=== PATIENT | male | born 1945 | race Hispanic/Latino ===

== ENCOUNTER → 2017-11-12 | Outpatient (CLI) | payer OTHER ==
[~2017-11-12] MED LIST: IOPAMIDOL 370 MG/ML 200 ML INFUS..BTL INJ ONE; SODIUM CHLORIDE 0.9% 50ML 50 ML ONE
[2017-11-12 08:42] LABS: BLOOD UREA NITROGEN 15 mg/dL (7-26); BUN/CREATININE RATIO 14 (6-25); CREATININE, SERUM 1.04 mg/dL (0.72-1.25); EST GLOMERULAR FILTRATION RATE > 60 ML/MIN (60-)
--- NOTE | 2017-11-12 09:05 | Diagnostic Imaging Report ---
PROCEDURE: X-RAY CHEST, TWO VIEWS COMPARISON: None. INDICATIONS: MALIGNANT NEOPLASM OF PROSTATE FINDINGS: LUNGS: No consolidations or edema. PLEURA: No effusions or pneumothorax. HEART \T\ MEDIASTINUM: Tortuous thoracic aorta with otherwise unremarkable cardiomediastinal contour. BONES \T\ SOFT TISSUES: No acute findings. CONCLUSION: No acute thoracic abnormality. Dictated by: Roland Tatum M.D. on 11/12/2017 at 9:05 Electronically approved by: Roland Tatum M.D. on 11/12/2017 at 9:05
--- NOTE | 2017-11-12 10:25 | Diagnostic Imaging Report ---
PROCEDURE: CT ABDOMEN AND PELVIS WITH CONTRAST TECHNIQUE: The abdomen and pelvis were scanned utilizing a multidetector helical scanner from the diaphragm to the lesser trochanter after the IV administration of 100 cc of Isovue-370 and the oral administration of water. Coronal and sagittal multiplanar reformations were obtained. COMPARISON: None. INDICATIONS: MALIGNANT NEOPLASM OF PROSTATE FINDINGS: LOWER THORAX: Unremarkable. Calcified granuloma in the left lung base. No suspicious nodules. HEPATOBILIARY: 1.1 cm hyperattenuating lesion in hepatic segment 8 at the dome is nonspecific though likely represent a flash filling hemangioma or vascular shunt. No additional focal hepatic lesion. No intrahepatic biliary ductal dilatation. The gallbladder is unremarkable. SPLEEN: No splenomegaly or focal splenic lesion. PANCREAS: No focal masses or ductal dilatation. ADRENALS: No adrenal nodules. KIDNEYS/URETERS: Exophytic simple cyst projecting from the upper pole of the left kidney (average internal attenuation 18 Hounsfield units). No additional focal renal lesion. No hydronephrosis. No calculi. PELVIC ORGANS/BLADDER: The urinary bladder is incompletely distended but otherwise unremarkable. The prostate is enlarged. It measures 5.6 cm in transverse dimension. PERITONEUM / RETROPERITONEUM: No ascites. No pneumoperitoneum. LYMPH NODES: No pelvic sidewall, retroperitoneal, or mesenteric lymphadenopathy. VESSELS: There is atherosclerotic calcification of the abdominal aorta, major branch vessels, and iliac arterial systems, without aneurysmal dilatation or significant stenosis. The portal vein, splenic vein, and central superior mesenteric vein are patent. GI TRACT: The large bowel shows no evidence of distention or wall thickening. Gas and fecal material are noted throughout. The appendix is normal. The stomach is collapsed with prominent rugal folds . 2.9 cm diverticulum arising from the fourth portion of the duodenum. No small bowel dilatation to suggest obstruction. BONES AND SOFT TISSUES: No osseous destructive lesions. Multilevel degenerative disc changes and facet arthropathy of the lower lumbar spine. Small fat containing left inguinal hernia. Otherwise no focal soft tissue abnormalities. IMPRESSION: 1.1 cm hyperattenuating lesion at the dome of the liver most likely represents a vascular shunt or flash filling hemangioma. Though metastatic disease from prostate cancer is felt to be much less likely, further characterization of this lesion with MRI of the abdomen with and without contrast (liver mass protocol) is suggested. Otherwise no CT evidence of intra-abdominal or pelvic metastatic disease. Dictated by: Roland Tatum M.D. on 11/12/2017 at 10:25 Electronically approved by: Roland Tatum M.D. on 11/12/2017 at 10:25
--- NOTE | 2017-11-12 17:46 | Diagnostic Imaging Report ---
Bone Scan, delayed phase INDICATION: 72 M with prostate cancer and right hip/groin pain x 1 year COMPARISON: None available REPORT: Approximately 4 hours following intravenous administration of 27.8 mCi of Tc-99m MDP, delayed total body images in the anterior and posterior projections and selected spot images were obtained. Degenerative changes are noted in the mid cervical spine, lower lumbar spine and bilateral knees. Otherwise, distribution of tracer activity is unremarkable throughout the skeletal system. Specifically, no abnormal accumulation of tracer is seen in the right hip, right pelvis or proximal femur. No abnormal accumulation of tracer is seen in the soft tissues or urinary tract. IMPRESSION: No acute osteoblastic process in the pelvis, right hip or right femur to suggest an etiology of the patent's right hip/groin pain. No scan evidence of metastatic bone disease. Signed by: Dr. Pauline Henderson M.D. on 11/12/2017 5:42 PM
== END ==
LOC: NM 07:43
PROVIDERS: ATTEND Urology
DX: C61 Malignant neoplasm of prostate (principal)
CPT/HCPCS: 36415; 71046; 74177; 78306; 82565; 84520; A9503; Q9967

== ENCOUNTER 2017-11-30 12:00 | Inpatient (IN) | payer OTHER ==
[~2017-11-30] VITALS: Ht 167.6 cm; Wt 83.5 kg
--- OUTSIDE RECORDS SUMMARY | 2017-11-30 12:02 | XMS REPORT ---
[facility] Address Unknown Phone Unavailable Care Team Providers Care Cap Parts Cutter Name Role Phone JANET NARAYANAN Unavailable Unavailable Problems This patient has no known problems. Allergies, Adverse Reactions, Alerts This patient has no known allergies or adverse reactions. Medications This patient has no known medications. Results Test Description Test Time Test Comments Text Results Atomic Results Result Comments CHEST 2 VIEWS [place] [address] Patient Name: KVNG NICK MR #: [id number] : 1945 Age/Sex: 72/M Req #: [id number] Adm Physician: Ordered by: JANET NARAYANAN MD Report #: [id number] Location: [place] Room/Bed: Procedure: [id number] DX/ CHEST 2 VIEWS Exam Date: 11/12/17 Exam Time: 0850 REPORT STATUS: Signed PROCEDURE: X-RAY CHEST, TWO VIEWS COMPARISON: None. INDICATIONS: MALIGNANT NEOPLASM OF PROSTATE FINDINGS: LUNGS: No consolidations or edema. PLEURA: No effusions or pneumothorax. HEART T MEDIASTINUM: Tortuous thoracic aorta with otherwise unremarkable cardiomediastinal contour. BONES T SOFT TISSUES : No acute findings. CONCLUSION: No acute thoracic abnormality. Dictated by: Charlee Wheeler M.D. on 11/12/2017 at 9:05 Electronically approved by: Charlee Wheeler M.D. on 11/12/2017 at 9:05 Dictated By: CHARLEE WHEELER MD 4 Transcribed By: MATILDA on 11/12/17904 COPY TO: JANET NARAYANAN MD CT ABDOMEN/PELVIS W [place] [address] Patient Name: KVNG NICK MR #: [id number] : 1945 Age/Sex: 72/M Req #: [id number] Adm Physician: Ordered by: JANET NARAYANAN MD Report #: [id number] Location: [place] Room/Bed: Procedure: [id number] CT/CT ABDOMEN/PELVIS W Exam Date: 11/12/17 Exam Time: 936 REPORT STATUS: Signed PROCEDURE: CT ABDOMEN AND PELVIS WITH CONTRAST TECHNIQUE: The abdomen and pelvis were scanned utilizing a multidetector helical scanner from the diaphragm to the lesser trochanter after the IV administration of 100 cc of Isovue-370 and the oral administration of water. Coronal and sagittal multiplanar reformations were obtained. COMPARISON: None. INDICATIONS: MALIGNANT NEOPLASM OF PROSTATE FINDINGS: LOWER THORAX: Unremarkable. Calcified granuloma in the left lung base. No suspicious nodules. HEPATOBILIARY: 1.1 cm hyperattenuating lesion in hepatic segment 8 at the dome is nonspecific though likely represent a flash filling hemangioma or vascular shunt. No additional focal hepatic lesion. No intrahepatic biliary ductal dilatation. The gallbladder is unremarkable. SPLEEN: No splenomegaly or focal splenic lesion. PANCREAS: No focal masses or ductal dilatation. ADRENALS: No adrenal nodules. KIDNEYS/URETERS: Exophytic simple cyst projecting from the upper pole of the left kidney (average internal attenuation 18 Hounsfield units). No additional focal renal lesion. No hydronephrosis. No calculi. PELVIC ORGANS/BLADDER: The urinary bladder is incompletely distended but otherwise unremarkable. The prostate is enlarged. It measures 5.6 cm in transverse dimension. PERITONEUM / RETROPERITONEUM: No ascites. No pneumoperitoneum. LYMPH NODES: No pelvic sidewall, retroperitoneal, or mesenteric lymphadenopathy. VESSELS: There is atherosclerotic calcification of the abdominal aorta, major branch vessels , and iliac arterial systems, without aneurysmal dilatation or significant stenosis. The portal vein, splenic vein, and central superior mesenteric vein are patent. GI TRACT: The large bowel shows no evidence of distention or wall thickening. Gas and fecal material are noted throughout. The appendix is normal. The stomach is collapsed with prominent rugal folds . 2.9 cm diverticulum arising from the fourth portion of the duodenum. No small bowel dilatation to suggest obstruction. BONES AND SOFT TISSUES: No osseous destructive lesions. Multilevel degenerative disc changes and facet arthropathy of the lower lumbar spine. Small fat containing left inguinal hernia. Otherwise no focal soft tissue abnormalities. IMPRESSION: 1.1 cm hyperattenuating lesion at the dome of the liver most likely represents a vascular shunt or flash filling hemangioma. Though metastatic disease from prostate cancer is felt to be much less likely, further characterization of this lesion with MRI of the abdomen with and without contrast (liver mass protocol) is suggested. Otherwise no CT evidence of intra-abdominal or pelvic metastatic disease. Dictated by: Charlee Wheeler M.D. on 11/12/2017 at 10:25 Electronically approved by: Charlee Wheeler M.D. on 11/12/2017 at 10:25 Dictated By : CHARLEE WHEELER MD 1025 Transcribed By: MATILDA on 11/12/17 1025 COPY TO: JANET NARAYANAN MD BONE and/or JOINT WHOLE BODY [place] [address] Patient Name: KVNG NICK MR #: [id number] : 1945 Age/Sex: 72/M Req #: [id number] Adm Physician: Ordered by: JANET NARAYANAN MD Report #: [id number] Location: [place] Room/Bed: Procedure: [id number] NM/BONE and/or JOINT WHOLE BODY Exam Date: 11/12/17 Exam Time: 0830 REPORT STATUS: Signed Bone Scan, delayed phase INDICATION: 72 M with prostate cancer and right hip/groin pain x 1 year COMPARISON: None available REPORT: Approximately 4 hours following intravenous administration of 27.8 mCi of Tc-99m MDP, delayed total body images in the anterior and posterior projections and selected spot images were obtained. Degenerative changes are noted in the mid cervical spine, lower lumbar spine and bilateral knees. Otherwise, distribution of tracer activity is unremarkable throughout the skeletal system. Specifically, no abnormal accumulation of tracer is seen in the right hip, right pelvis or proximal femur. No abnormal accumulation of tracer is seen in the soft tissues or urinary tract. IMPRESSION: No acute osteoblastic process in the pelvis, right hip or right femur to suggest an etiology of the patent's right hip/groin pain. No scan evidence of metastatic bone disease. Signed by: Dr. Zandra Henderson M.D. on 11/12/2017 5: 42 PM Dictated By: ZANDRA HENDERSON MD 41 Transcribed By: MONSE on 11/12/171741 COPY TO: JANET NARAYANAN MD
[2017-11-30 13:02] LABS: BASOPHILS % 0.4 % (0.0-1.0); EOSINOPHILS # (AUTO) 0.1 (0.0-0.4); HEMATOCRIT 42.6 % (38.2-49.6); HEMOGLOBIN 14.7 g/dL (14.0-18.0); LYMPHOCYTES # (AUTO) 1.6 (1.0-3.2); LYMPHOCYTES % 19.5 % (18.0-39.1); MEAN CORPUSCULAR HEMOGLOBIN 32.7 pg (28-32); MEAN CORPUSCULAR HGB CONC 34.5 g/dL (31-35); MEAN CORPUSCULAR VOLUME 94.7 fL (81-99); MONOCYTES # (AUTO) 0.6 (0.2-0.8); MONOCYTES % 7.7 % (4.4-11.3); NEUTROPHILS # (AUTO) 5.7 (2.1-6.9); NEUTROPHILS % 71.3 % (38.7-80.0); PLATELET COUNT 288 x10e3/uL (140-360)
[2017-11-30] MEDS ORDERED: GENTAMICIN 80MG/NS 100 ML 200 ML IV ONE (13:03)
[2017-11-30] MEDS ORDERED: CLINDAMYCIN PHOS 900MG/ D5W 50 50 ML IV ONE (13:03)
[2017-11-30] MEDS ORDERED: PIPER-TAZ 3.375 GM 100 ML ONE (13:03)
[2017-11-30 13:23] LABS: ANION GAP 13.1 mmol/L (8-16); BLOOD UREA NITROGEN 16 mg/dL (7-26); BUN/CREATININE RATIO 17 (6-25); CALCIUM 9.9 mg/dL (8.4-10.2); CARBON DIOXIDE 26 mmol/L (22-29); CHLORIDE 107 mmol/L (98-107); CREATININE, SERUM 0.95 mg/dL (0.72-1.25); EST GLOMERULAR FILTRATION RATE > 60 ML/MIN (60-); GLUCOSE 89 mg/dL (74-118); POTASSIUM 4.1 mmol/L (3.5-5.1); SODIUM 142 mmol/L (136-145)
--- NOTE | 2017-11-30 13:27 | Diagnostic Imaging Report ---
PROCEDURE: Frontal and lateral views of the chest. COMPARISON: 11/12/17 INDICATIONS: PREOPERATIVE CHEST XRAY FOR PROSTATE SURGERY FINDINGS: Lines/tubes: None. Lungs: The lungs are well inflated and clear. There is no evidence of pneumonia or pulmonary edema. Pleura: There is no pleural effusion or pneumothorax. Heart and mediastinum: The heart and the mediastinum are normal. Bones: No acute bony abnormality. IMPRESSION: 1. No acute cardiopulmonary disease. Dictated by: Wilmer Kinsey M.D. on 11/30/2017 at 13:29 Electronically approved by: Wilmer Kinsey M.D. on 11/30/2017 at 13:29
[2017-11-30] MEDS ORDERED: METHYLENE BLUE 1% INJ 10 ML VIAL INJ ONE (16:12)
[2017-11-30] MEDS ORDERED: GLYCOPYRROLATE INJ 1MG/ 5 ML SYR ONE (16:58)
[2017-11-30] MEDS ORDERED: DEXAMETHASONE SOD PHOS INJ 4 MG/ML VIAL ONE (16:58)
[2017-11-30] MEDS ORDERED: ROCURONIUM BROMIDE 10 MG/ML 5ML VIAL ONE (16:58)
[2017-11-30] MEDS ORDERED: ONDANSETRON HCL INJ 2 MG/ML VIAL ONE (16:58)
[2017-11-30] MEDS ORDERED: PROPOFOL IV EMULSION 10 MG/ML 20 ML VIAL ONE (16:58)
[2017-11-30] MEDS ORDERED: NEOSTIGMINE 5 MG/5ML SYR ONE (16:58)
[2017-11-30] MEDS ORDERED: SEVOFLURANE INHAL SOLN 250 ML PEN BTL ONE (16:58)
[2017-11-30] MEDS ORDERED: LIDOCAINE HCL 2% LOCAL INJ 5 ML SDV VIAL INJ ONE (16:58)
[2017-11-30] MEDS ORDERED: HYDRALAZINE HCL 20 MG/ML VIAL ONE (17:19)
[2017-11-30] MEDS ORDERED: ACETAMINOPHEN 1000 MG/100 ML IV PRN (18:00)
[2017-11-30] MEDS ORDERED: ONDANSETRON HCL INJ 2 MG/ML VIAL IV PRN (18:00)
[2017-11-30] MEDS ORDERED: MORPHINE SULFATE 1 MG/ML 30ML PCA IV PRN (18:00)
[2017-11-30] MEDS ORDERED: DIPHENHYDRAMINE HCL INJ 50 MG/ML VIAL IM PRN (18:00)
[2017-11-30] MEDS ORDERED: DIPHENHYDRAMINE HCL 25 MG CAP PO PRN (18:00)
[2017-11-30] MEDS ORDERED: NALOXONE HCL INJ 0.4 MG/ML AMP IV PRN (18:00)
[2017-11-30] MEDS ORDERED: MIDAZOLAM HCL 2 MG/2 ML VIAL ONE (19:38)
[2017-11-30] MEDS ORDERED: FENTANYL CITRATE/PF 100MCG/2 ML INJ ONE (19:38)
[2017-11-30] MEDS ORDERED: MORPHINE SULFATE INJ 10 MG/ML ONE (19:38)
[2017-11-30] MEDS: D5.45%NS/KCL 20MEQ 1,000 ML IV SCH (19:46)
[2017-11-30 20:00] VITALS: BP 135/63
[2017-11-30 21:20] VITALS: BP 135/63
[2017-11-30] MEDS: PIPER-TAZ 3.375 GM 100 ML IV SCH (21:20)
[2017-11-30] MEDS: CLINDAMYCIN 300MG 50 ML IV SCH ×2 (21:30→22:30)
[2017-12-01] VITALS (7 sets, daily range): BP systolic 113–136; BP diastolic 56–60
[2017-12-01] MEDS: D5.45%NS/KCL 20MEQ 1,000 ML IV SCH ×2 (01:51→06:18)
[2017-12-01] MEDS: PIPER-TAZ 3.375 GM 100 ML IV SCH ×3 (05:17→20:54)
[2017-12-01] MEDS: CLINDAMYCIN 300MG 50 ML IV SCH (06:18)
[2017-12-01 07:22] LABS: BASOPHILS % 0.1 % (0.0-1.0); HEMATOCRIT 34.6 % (38.2-49.6); HEMOGLOBIN 11.9 g/dL (14.0-18.0); LYMPHOCYTES % 9.2 % (18.0-39.1); MEAN CORPUSCULAR HEMOGLOBIN 32.8 pg (28-32); MEAN CORPUSCULAR HGB CONC 34.4 g/dL (31-35); MEAN CORPUSCULAR VOLUME 95.3 fL (81-99); MONOCYTES # (AUTO) 0.9 (0.2-0.8); MONOCYTES % 8.3 % (4.4-11.3); NEUTROPHILS # (AUTO) 8.7 (2.1-6.9); NEUTROPHILS % 82.1 % (38.7-80.0); PLATELET COUNT 245 x10e3/uL (140-360); RED BLOOD COUNT 3.63 x10e6/uL (4.3-5.7)
[2017-12-01 07:43] LABS: ANION GAP 11.4 mmol/L (8-16); BLOOD UREA NITROGEN 13 mg/dL (7-26); BUN/CREATININE RATIO 13 (6-25); CALCIUM 8.7 mg/dL (8.4-10.2); CARBON DIOXIDE 26 mmol/L (22-29); CHLORIDE 107 mmol/L (98-107); EST GLOMERULAR FILTRATION RATE > 60 ML/MIN (60-); GLUCOSE 122 mg/dL (74-118); POTASSIUM 4.4 mmol/L (3.5-5.1); SODIUM 140 mmol/L (136-145)
[2017-12-01] MEDS: DOCUSATE SODIUM 100 MG CAP PO SCH ×2 (08:24→16:31)
[2017-12-01] MEDS ORDERED: HYDROMORPHONE 1MG/1ML INJ IV PRN (09:00)
[2017-12-01] MEDS ORDERED: HYDROCODONE/APAP 10MG-325MG TAB PO PRN (09:00)
--- NOTE | 2017-12-01 10:06 | History and Physical ---
COMMERCIAL ACCOUNTANT: Dr. Booker Arvizu CHIEF COMPLAINT: Status post radical prostatectomy secondary to prostate cancer. HISTORY: Patient is 72-year-old male who is now status post radical prostatectomy secondary to prostate cancer. The patient is stable. No chest pain. No shortness of breath. No abdominal pain. PAST MEDICAL HISTORY: Prostate cancer. PAST SURGICAL HISTORY: Status post radical prostatectomy. SOCIAL HISTORY: Patient does not smoke or use alcohol. No recreational drug use. ALLERGIES: NO KNOWN ALLERGIES. HOME MEDICATIONS: Not yet available. REVIEW OF SYSTEMS: Status post prostate surgery. PHYSICAL EXAMINATION: VITAL SIGNS: Temperature is 98, blood pressure 113/56, pulse rate is 58, respiration 18. GENERAL: The patient is not in acute distress. He is awake. HEENT: Normocephalic, atraumatic. Sclerae anicteric. NECK: Supple grossly. PULMONARY: Diminished breath sounds without any wheezing or rales. CARDIOVASCULAR: S1, S2. Regular rate and rhythm. ABDOMEN: Soft. Positive bowel sounds. Status post radical prostatectomy. EXTREMITIES: No cyanosis or edema. NEURO: There is no gross focal deficit. LABORATORY: Sodium is 140, potassium is 4.4, chloride 107, bicarb 26, BUN 13, creatinine 1.2, glucose 122. WBC 10.5, hemoglobin 11.9, hematocrit 34.6, platelets is 245,000. IMPRESSION: 1. Status post radical prostatectomy. 2. Low-grade fever. PLAN: Continue postoperative care. Pain control. IV fluids adjustment. Will monitor the patient closely. Job#: [id number]
[2017-12-01] MEDS ORDERED: ONDANSETRON HCL 4 MG ORAL DISINTEGRATING TAB SL PRN (13:45)
[2017-12-01] MEDS: FAMOTIDINE 20 MG TAB PO SCH (16:31)
[2017-12-02] VITALS: BP 138/56
[2017-12-02 04:00] VITALS: BP 142/65
[2017-12-02] MEDS: PIPER-TAZ 3.375 GM 100 ML IV SCH (06:04)
[2017-12-02 07:04] LABS: BASOPHILS % 0.2 % (0.0-1.0); EOSINOPHILS # (AUTO) 0.1 (0.0-0.4); HEMATOCRIT 34.8 % (38.2-49.6); HEMOGLOBIN 11.8 g/dL (14.0-18.0); LYMPHOCYTES # (AUTO) 1.6 (1.0-3.2); LYMPHOCYTES % 19.5 % (18.0-39.1); MEAN CORPUSCULAR HEMOGLOBIN 33.3 pg (28-32); MEAN CORPUSCULAR HGB CONC 33.9 g/dL (31-35); MEAN CORPUSCULAR VOLUME 98.3 fL (81-99); MONOCYTES # (AUTO) 0.8 (0.2-0.8); MONOCYTES % 9.5 % (4.4-11.3); NEUTROPHILS # (AUTO) 5.8 (2.1-6.9); NEUTROPHILS % 69.4 % (38.7-80.0); PLATELET COUNT 206 x10e3/uL (140-360); RED BLOOD COUNT 3.54 x10e6/uL (4.3-5.7); RED CELL DISTRIBUTION WIDTH 13.2 % (11.7-14.4)
[2017-12-02 07:40] VITALS: BP 142/65
[2017-12-02 07:43] LABS: ANION GAP 10.1 mmol/L (8-16); BLOOD UREA NITROGEN 14 mg/dL (7-26); BUN/CREATININE RATIO 12 (6-25); CALCIUM 9.3 mg/dL (8.4-10.2); CARBON DIOXIDE 29 mmol/L (22-29); CHLORIDE 107 mmol/L (98-107); CREATININE, SERUM 1.15 mg/dL (0.72-1.25); EST GLOMERULAR FILTRATION RATE > 60 ML/MIN (60-); GLUCOSE 93 mg/dL (74-118); POTASSIUM 4.1 mmol/L (3.5-5.1); SODIUM 142 mmol/L (136-145)
[2017-12-02 08:05] VITALS: BP 148/68
[2017-12-02] MEDS: FAMOTIDINE 20 MG TAB PO SCH (08:24)
[2017-12-02] MEDS: DOCUSATE SODIUM 100 MG CAP PO SCH (08:24)
--- NOTE | 2017-12-02 13:03 | Discharge Summary ---
PRIMARY CARE PHYSICIAN: Dr. Bronwyn Diaz. END USER CONSULTANT: Dr. Booker Arvizu. FINAL DIAGNOSES 1. Postoperative care status post radical prostatectomy, the procedure was done by Dr. Booker Arvizu. 2. Status post low-grade fever. 3. Prostate cancer. SUMMARY: Patient is a 72-year-old male admitted to the hospital after surgical intervention done by Dr. Booker Arvizu. The patient is status post radical prostatectomy secondary to prostate cancer. Patient is stable postop. Pain controlled. He is stable at this time. He will be discharged home with a Rogers catheter. Medications given. Resume home medications. Prescription given by Dr. Booker Arvizu including Tylenol No. 3 p.r.n., Colace 1 mg b.i.d. and Levaquin 500 mg daily for 7 days. Patient is stable. He will follow up with Dr. Booker Arvizu as an outpatient. The patient will have postoperative care upon followup with Dr. Arvizu. Patient is stable and discharged home today. Job#: [id number] JESSICA
--- NOTE | 2018-01-27 02:52 | Operative Report ---
DATE OF PROCEDURE: November 30, 2017 PREOPERATIVE DIAGNOSIS: Clinically localized prostate cancer. POSTOPERATIVE DIAGNOSIS: Clinically localized prostate cancer. PROCEDURE PERFORMED: Radical perineal prostatectomy. Procedure complicated by the significant surrounding reaction. ROLL WEIGHER: Cinthya Arvizu MD COMPLICATIONS: None. CLINICAL SUMMARY: Ortiz Moreno is a 72-year-old man who was diagnosed with prostate cancer. He was given literature. He had multiple office visits to discuss the treatment options including radiotherapy, hormone therapy, neoadjuvant combination of those two, radical prostatectomy as well as watchful waiting. Other modalities were also discussed. The patient elected to proceed with radical perineal prostatectomy. He understands the risks of bleeding, infection, injury to adjacent structures, incontinence, impotence, need for additional procedures, incomplete cancer resection. He elected to proceed. OPERATIVE PROCEDURE IN DETAIL: Informed consent was verified. Ortiz Moreno was properly identified, taken to the operating room, placed on the operating table in supine position. Anesthesia was uneventfully begun. The patient was then carefully and gently repositioned very slowly in the exaggerated lithotomy position with all pressure points carefully well padded. His perineum was shaved and his abdomen, genitalia, perineum and buttocks were prepared and draped in usual sterile fashion. A curved Lowsley retractor was atraumatically inserted in the patient's urethra and into the patient's bladder and the wings opened. A curvilinear incision was then made from just medial to each ischial tuberosity and curving around with the apex being in the middle of the perineum. We carried this incision through all layers of the perineum until we exposed the pearly patrick that led to the prostatic apex. Once we exposed the prostatic apex, we utilized a self-retaining retractor. We proceeded with dissecting posteriorly as we dropped the Denonvilliers fascia posteriorly. Care was taken to avoid any injury to the rectum. Once we isolated the apex, we proceeded with taking down lateral pedicles. We then proceeded with taking down bladder neck fibers in order to try to preserve as many of them without impinging on the extirpative nature of excising all cancer and prostatic tissue. Once bladder neck dissection was partially done, we gave our attention to the apex where the urethra was divided just distal to the prostatic apex. This allowed us to remove the curved Lowsley retractor. We placed the straight Lowsley retractor. We then incised the anterior half of the urethra. We then proceeded with the anterior dissection until we reached the bladder neck and then we completed the bladder neck dissection. Attention was then given to the ampullae of the vas. These were ligated and divided and then both seminal vesicles were dissected out, ligated and divided as well. The remaining lateral pedicles of the prostate were then taken down and controlled with Hemoclips and these specimens were removed from the field. Visibly complete excision was performed. Copious irrigation was performed. We then reconstructed the posterior portion of the bladder neck with several interrupted Monocryl sutures. We then proceeded with performing the urethrovesical anastomosis utilizing a total of 13 sutures. The midline posterior one was in a U-stitch fashion. Just before tying the last several sutures, a new Rogers catheter was placed. It was inflated into the patient's bladder. During the bladder neck reconstruction, both ureteral orifices were identified and were left uninjured. Once the entire anastomosis was completed and all sutures tied, copious irrigation was performed. A Whatley drain was then placed through the left corner of the incision and placed in such a way as to drain both lateral pedicle regions. This drain was secured to the skin with a chromic suture. The median raphe and perineal bodies were then approximated with heavy Vicryl suture in an interrupted figure-of-8 fashion. The subcutaneous tissues were approximated with interrupted absorbable suture. The subcutaneous layer and subdermal layer there were then approximated with interrupted Vicryl suture. The skin was approximated with chromic suture in interrupted vertical mattress fashion. Sterile dressings were applied. The patient was then very carefully and gently repositioned in the supine position. His Rogers catheter was irrigated to and fro to ensure patency and ensure no blood clots were present. The patient was then uneventfully reversed from anesthesia and taken to recovery room in stable condition. There were no complications during the procedure. The patient tolerated the procedure well. Sponge, needle and instrument were reported as correct times 2 at the end of the case. For estimated blood loss please refer to the anesthetic record. The patient was then uneventfully reversed from anesthesia and taken to the recovery room in stable condition. There were no complications during the procedure. The patient tolerated the procedure well. Proceed with routine postoperative care and of course lifelong followup. This procedure was made difficult by surrounding reaction around this prostate. Job#: [id number] KELVIN
== END 2017-12-02 10:15 | disposition home or self-care (01) | DRG 708 ==
LOC: OR 12:00 → MED/SURG 19:36
PROVIDERS: ADMIT Internal Medicine; ATTEND Internal Medicine
PROC: 0VT00ZZ Resection of Prostate, Open Approach (ICD-10-PCS; principal; 2017-11-30 14:00)
DX: C61 Malignant neoplasm of prostate (principal); F17.210 Nicotine dependence, cigarettes, uncomplicated; N40.1 Benign prostatic hyperplasia with lower urinary tract symptoms; R33.8 Other retention of urine
CPT/HCPCS: 36415; 71046; 80048; 83735; 85025; 86850; 86900; 88305; 88307; 88309; 88331; 93005; J0360; J1100; J1170; J1580; J2001; J2250; J2270; J2405; J2543

== ENCOUNTER 2017-12-21 09:18 | Emergency (ER) | payer OTHER ==
[~2017-12-21] VITALS: Ht 167.6 cm; Wt 83.5 kg
--- OUTSIDE RECORDS SUMMARY | 2017-12-21 09:20 | XMS REPORT | Continuity of Care Document ---
Author Author [facility] Organization [facility] Address [address] [place] [address] Phone Unavailable Care Team Providers Care Cinder Pit Worker Name Role Phone PITER WILSON MD PCP Insurance Providers Guarantor Ortiz Moreno Address [address] [place] [address] Email [email or web address] Payer [employer] Policy Number [id number] Subscriber's Name Ortiz Moreno Relationship 18 Self / Same As Patient Group Number [id number] Group Name [employer] - [employer] Ad[employer] Effective Date 17 Advance Directives Directive Response Recorded Date/Time Does the patient have an advance directive? No 11/30/17 9:20pm If yes, is advance directive on file with [facility]? No 11/30/17 9:20pm If not on file with [facility] will patient provide a copy? No 11/30/17 9:20pm Do you have a Directive to Physician? No 11/30/17 11:07am Do you have a Medical Power of Curbing Stonecutter? No 11/30/17 11:07am Do you have an out of hospital Do Not Resuscitate Order? No 11/30/17 11:07am Do you have any special needs we should be aware of? No 11/30/17 11:07am Do you have a support person here with you today? Yes 11/30/17 11:58am Did patient receive Notice of Privacy Practices? Yes 11/30/17 11:07am Did patient receive patient rights and responsibilities? Yes 11/30/17 11:07am Problems No problem information available. Medications No known medications. Social History Social History Problem Response Recorded Date/Time Onset Date Status Hx Psychiatric Problems No 11/30/2017 9:20pm Not Applicable Not Applicable Hx Eating Disorder No 11/30/2017 9:20pm Not Applicable Not Applicable Hx Substance Use Disorder No 11/30/2017 9:20pm Not Applicable Not Applicable Hx Depression No 11/30/2017 9:20pm Not Applicable Not Applicable Hx Alcohol Use Y - TEQUILA QMONTHLY/SPECIAL EVENTS 11/30/2017 9:20pm Not Applicable Not Applicable Hx Substance Use Treatment No 11/30/2017 9:20pm Not Applicable Not Applicable Hx Physical Abuse No 11/30/2017 9:20pm Not Applicable Not Applicable Smoking Status Start Date Stop Date Former smoker Hospital Discharge Instructions No hospital discharge instruction information available. Plan of Care Discharge Date 12/02/17 10:15am Disposition HOME, SELF-CARE Instructions/Education Provided Post Operative Pain Prescriptions See Medication Section Referrals JANET NARAYANAN MD (Urology) Order Date: 1 Month Entered Date: 12/02/2017 8:55am Address: [address] [place] [id number] Additional Instructions/Education OKAY TO SHOWER. CHANGE DRESSING TO PERINEAL AREA FOUR TIMES A DAY UNTIL NO DRAINAGE FROM SITE. NO LIFTING >5LBS. NO STRAINING. FOLLOW UP IN ONE MONTH. CALL OFFICE TO ARRANGE CYSTOGRAM IN 2-3 WEEKS. Functional Status Query Response Date Recorded Assistive Devices None November 30, 2017 9:20pm Ambulation Ability Independent November 30, 2017 9:20pm Toileting Ability Minimum Assistance December 02, 2017 9:35am Allergies, Adverse Reactions, Alerts No known allergies. Immunizations No immunization information available. Vital Signs Acute Vital Signs Vital Response Date/Time Temperature (Fahrenheit) 96.9 degrees F (97.6 - 99.5) 12/02/2017 8:05am Pulse Pulse Rate (adult) 66 bpm (60 - 90) 12/02/2017 8:08am Respiratory Rate 15 bpm (12 - 24) 12/02/2017 8:08am Blood Pressure 148/68 mm Hg 12/02/2017 8:05am Height 5 ft 6 in 11/30/2017 9:20pm Weight 184 lb 12/01/2017 6:20pm Body Mass Index 29.7 kg/m^2 12/01/2017 6:20pm Results Laboratory Results Test Name Result Units Flags Reference Collection Date/Time Result Date/ Time Comments White Blood Count 8.39 x10e3/uL 4.8-10.8 12/02/2017 6:50am 12/02/2017 7 :10am Red Blood Count 3.54 x10e6/uL L 4.3-5.7 12/02/2017 6:50am 12/02/2017 7: 10am Hemoglobin 11.8 g/dL L 14.0-18.0 12/02/2017 6:50am 12/02/2017 7:10am Hematocrit 34.8 % L 38.2-49.6 12/02/2017 6:50am 12/02/2017 7:10am Mean Corpuscular Volume 98.3 fL # 81-99 12/02/2017 6:50am 12/02/2017 7: 10am Mean Corpuscular Hemoglobin 33.3 pg H 28-32 12/02/2017 6:50am 2017 7:10am Mean Corpuscular Hemoglobin Concent 33.9 g/dL 31-35 12/02/2017 6:50am 12/02/2017 7:10am Red Cell Distribution Width 13.2 % 11.7-14.4 12/02/2017 6:50am 2017 7:10am Platelet Count 206 x10e3/uL 140-360 12/02/2017 6:50am 12/02/2017 7: 10am Neutrophils (%) (Auto) 69.4 % 38.7-80.0 12/02/2017 6:50am 12/02/2017 7: 10am Lymphocytes (%) (Auto) 19.5 % 18.0-39.1 12/02/2017 6:50am 12/02/2017 7: 10am Monocytes (%) (Auto) 9.5 % 4.4-11.3 12/02/2017 6:5012/02/2017 7: 10am Eosinophils (%) (Auto) 1.0 % 0.0-6.0 12/02/2017 6:5012/02/2017 7: 10am Basophils (%) (Auto) 0.2 % 0.0-1.0 12/02/2017 6:5012/02/2017 7:10am IM GRANULOCYTES % 0.4 % 0.0-1.0 12/02/2017 6:5012/02/2017 7:10am Neutrophils # (Auto) 5.8 2.1-6.9 12/02/2017 6:5012/02/2017 7:10am Lymphocytes # (Auto) 1.6 1.0-3.2 12/02/2017 6:5012/02/2017 7:10am Monocytes # (Auto) 0.8 0.2-0.8 12/02/2017 6:5012/02/2017 7:10am Eosinophils # (Auto) 0.1 0.0-0.4 12/02/2017 6:5012/02/2017 7:10am Basophils # (Auto) 0.0 0.0-0.1 12/02/2017 6:5012/02/2017 7:10am Absolute Immature Granulocyte (auto 0.03 x10e3/uL 0-0.1 12/02/2017 6: 5012/02/2017 7:10am Sodium Level 142 mmol/L 136-145 12/02/2017 6:5012/02/2017 7:44am Potassium Level 4.1 mmol/L 3.5-5.1 12/02/2017 6:5012/02/2017 7:44am Chloride Level 107 mmol/L 98-107 12/02/2017 6:5012/02/2017 7:44am Carbon Dioxide Level 29 mmol/L 22-29 12/02/2017 6:5012/02/2017 7: 44am Anion Gap 10.1 mmol/L 8-16 12/02/2017 6:50am 12/02/2017 7:44am Blood Urea Nitrogen 14 mg/dL 7-12/02/2017 6:50am 12/02/2017 7:44am Creatinine 1.15 mg/dL 0.72-1.25 12/02/2017 6:50am 12/02/2017 7:44am BUN/Creatinine Ratio 12 6-25 12/02/2017 6:50am 12/02/2017 7:44am Estimat Glomerular Filtration Rate > 60 ML/MIN 60- 12/02/2017 6:50am 7:44am Ranges were taken from the National Kidney Disease Education Program and the National Kidney Foundation literature. Reference ranges: 60 or greater: Normal 16-59 (for 3 consecutive months): Chronic kidney disease 15 or less: Kidney failure Glucose Level 93 mg/dL 74-118 12/02/2017 6:50am 12/02/2017 7:44am Calcium Level 9.3 mg/dL 8.4-10.2 12/02/2017 6:50am 12/02/2017 7:44am Magnesium Level 2.0 MG/DL 1.3-2.1 11/30/2017 12:50pm 11/30/2017 6:38pm Procedures Procedure Status Date Provider(s) Radical perineal prostatectomy Completed 11/30/17 JANET NARAYANAN MD Computed tomography of abdomen and pelvis with contrast Active 11/12/17 JAENT NARAYANAN MD X-ray of chest, two views Active 11/12/17 JANET NARAYANAN MD X-ray of chest, two views Active 11/30/17 JANET NARAYANAN MD Encounters Encounter Location Arrival/Admit Date Discharge/Depart Date Attending Provider Discharged Inpatient [facility] 11/30/17 7:36pm 12/02/17 10:15am ZENAIDA ESCALANTE MD Registered Clinic [facility] 11/12/17 7:43am JANET NARAYANAN MD
[2017-12-21 10:44] LABS: BASOPHILS % 0.3 % (0.0-1.0); EOSINOPHILS # (AUTO) 0.2 (0.0-0.4); EOSINOPHILS % 1.4 % (0.0-6.0); HEMATOCRIT 42.8 % (38.2-49.6); HEMOGLOBIN 14.5 g/dL (14.0-18.0); LYMPHOCYTES # (AUTO) 1.4 (1.0-3.2); LYMPHOCYTES % 12.7 % (18.0-39.1); MEAN CORPUSCULAR HEMOGLOBIN 32.6 pg (28-32); MEAN CORPUSCULAR HGB CONC 33.9 g/dL (31-35); MEAN CORPUSCULAR VOLUME 96.2 fL (81-99); MONOCYTES # (AUTO) 0.9 (0.2-0.8); MONOCYTES % 8.8 % (4.4-11.3); NEUTROPHILS # (AUTO) 8.1 (2.1-6.9); NEUTROPHILS % 76.3 % (38.7-80.0); PLATELET COUNT 320 x10e3/uL (140-360); RED BLOOD COUNT 4.45 x10e6/uL (4.3-5.7); RED CELL DISTRIBUTION WIDTH 12.8 % (11.7-14.4)
[2017-12-21 10:46] LABS: CLARITY,URINE CLOUDY (CLEAR); COLOR,URINE YELLOW (YELLOW); LEUKOCYTE ESTERASE ,URINE 1+ (NEGATIVE); NITRITE,URINE POSITIVE (NEGATIVE)
[2017-12-21 10:47] LABS: BILIRUBIN,URINE NEGATIVE (NEGATIVE); KETONES,URINE NEGATIVE (NEGATIVE); PROTEIN,URINE DIPSTICK 2+ (NEGATIVE); URINE UROBILINOGEN 0.2 mg/dL (0.2 - 1)
[2017-12-21 10:59] LABS: BACTERIA,URINE FEW /HPF; EPITHELIAL CELLS,URINE FEW /LPF; MUCUS,URINE FEW (RARE); WBC,URINE (MAN) >50 /HPF (0-5)
[2017-12-21 11:10] LABS: ALANINE AMINOTRANSFERASE 37 IU/L (0-55); ALBUMIN 3.8 g/dL (3.5-5.0); ALBUMIN/GLOBULIN RATIO 0.9 (0.8-2.0); ALKALINE PHOSPHATASE 101 IU/L (40-150); ANION GAP 11.9 mmol/L (8-16); BLOOD UREA NITROGEN 17 mg/dL (7-26); BUN/CREATININE RATIO 17 (6-25); CALCIUM 10.2 mg/dL (8.4-10.2); CARBON DIOXIDE 29 mmol/L (22-29); CHLORIDE 102 mmol/L (98-107); CREATININE, SERUM 0.99 mg/dL (0.72-1.25); EST GLOMERULAR FILTRATION RATE > 60 ML/MIN (60-); GLUCOSE 106 mg/dL (74-118); POTASSIUM 3.9 mmol/L (3.5-5.1); SODIUM 139 mmol/L (136-145)
[2017-12-21] MEDS ORDERED: CEFTRIAXONE SOD 1 GM VIAL IV ONE (11:15)
[2017-12-21] MEDS ORDERED: IOTHALAMATE MEGLUMINE 17.20% 250 ML BTL ONE (12:23)
[2017-12-21 13:04] LABS: CLARITY,URINE CLEAR (CLEAR); COLOR,URINE YELLOW (YELLOW)
[2017-12-21 13:05] LABS: BILIRUBIN,URINE NEGATIVE (NEGATIVE); KETONES,URINE NEGATIVE (NEGATIVE); LEUKOCYTE ESTERASE ,URINE 2+ (NEGATIVE); NITRITE,URINE POSITIVE (NEGATIVE); PROTEIN,URINE DIPSTICK NEGATIVE (NEGATIVE); URINE UROBILINOGEN 0.2 mg/dL (0.2 - 1)
[2017-12-21 13:11] LABS: WBC,URINE (MAN) 21-50 /HPF (0-5)
[2017-12-21 13:12] LABS: BACTERIA,URINE FEW /HPF; EPITHELIAL CELLS,URINE FEW /LPF
[2017-12-21] MEDS ORDERED: SODIUM CHLORIDE 0.9% 500ML 500 ML ONE (15:16)
--- NOTE | 2017-12-21 16:38 | Diagnostic Imaging Report ---
CT cystogram CPT code 53312 CLINICAL HISTORY: Prostate cancer status post prostatectomy 1.5 weeks ago, burning sensation. TECHNIQUE: Images of the pelvis were performed before and after the administration of 500 cc dilute contrast into the bladder in retrograde fashion. Post void images were obtained. RADIATION DOSE: Total DLP: 1078.9 mGy*cm Estimated effective dose: (DLP x 0.015 x size factor) mSv CTDIvol has been reviewed. It is below the limits set by the Radiation Protocol Committee (RPC). COMPARISON: None. FINDINGS: Bladder: Rogers catheter is in appropriate position. There is normal filling of the bladder without evidence of leak. Mild thickening of the posterior bladder wall suggestive of hypertrophy. No retrograde filling of the ureters. Post void images images demonstrate no leak or significant residual. Prostate gland is absent. Bowel: Visualized bowel is normal in diameter with normal wall thickness. Lymph nodes: No lymphadenopathy. Vascular: Scattered atherosclerotic calcifications of the aorta and iliac arteries without aneurysmal dilatation. No free fluid or fluid collection. Bones: Heterogeneous appearance of the lower lumbar spine is likely due to degenerative changes. Soft tissues: There is a fat-containing left inguinal hernia. IMPRESSION: 1. Status post prostatectomy. No evidence of bladder leak. 2. No fluid collection to suggest abscess. Signed by: Dr. Meagan Haywood MD on 12/21/2017 4:34 PM
== END 2017-12-21 17:26 | disposition home or self-care (01) ==
LOC: ER 09:18
DX: R30.0 Dysuria (principal); R10.31 Right lower quadrant pain; N30.90 Cystitis, unspecified without hematuria; Z85.46 Personal history of malignant neoplasm of prostate
CPT/HCPCS: 36415; 72193; 80053; 81001; 85025; 87086; 87186; 99284; J0696; J7040; Q9958